=== PATIENT | male | born 1945 | race Caucasian/White ===

== ENCOUNTER → 2017-05-26 | Outpatient (CLI) | payer BC ==
[2017-05-26 17:35] LABS: BASO % 0.2 %; BASO ABS # 0.02 K/uL (0-0.2); COMPLETE YES; EOS % 1.7 %; HEMATOCRIT 42.6 % (42-52); IG% 0.2 %; LYMPH % 25.5 %; LYMPH ABS # 2.07 K/uL (1.2-3.4); MEAN CELL VOLUME 87.7 fL (80-100); MEAN CORPUSCULAR HEMOGLOBIN 28.8 pg (25-34); MEAN CORPUSCULAR HGB CONC 32.9 g/dl (32-36); MEAN PLATELET VOLUME 9.8 fL (7.4-10.4); MONO % 8.5 %; NEUT % 63.9 %; PLATELET COUNT 215 K/uL (130-400); RED BLOOD COUNT 4.86 M/uL (4.7-6.1); WHITE BLOOD COUNT 8.11 K/uL (4.8-10.8)
[2017-05-26 18:03] LABS: ALT/SGPT 48 U/L (12-78); BLOOD UREA NITROGEN 15 mg/dl (7-18); BUN/CREATININE RATIO 23.5 (10-20); CALCIUM 9.3 mg/dl (8.5-10.1); CARBON DIOXIDE 23 mmol/L (21-32); CHLORIDE 105 mmol/L (98-107); CHOLESTEROL 223 mg/dl (0-200); CREATININE 0.62 mg/dl (0.60-1.40); GLUCOSE 125 mg/dl (70-99); POTASSIUM 4.1 mmol/L (3.5-5.1); SODIUM 137 mmol/L (136-145)
[2017-05-26 18:14] LABS: ALB/GLOB RATIO 1.4 (0.9-2); ALKALINE PHOSPHATASE 54 U/L (45-117); AST/SGOT 31 U/L (15-37); CHOLESTEROL/HDL RATIO 6.8; HDL CHOLESTEROL 33 mg/dl; LDL CHOLESTEROL CALCULATED 154 mg/dl; TRIGLYCERIDES 178 mg/dl (0-150); VERY LOW DENSITY LIPOPROT CALC 36 mg/dl
[2017-05-27 07:26] LABS: ESTIMATED AVERAGE GLUCOSE 240 mg/dl; HA1C FLAG Normal (Normal)
== END | disposition home or self-care (01) ==
LOC: C.LAB1850 16:50
PROVIDERS: ATTEND Internal Medicine
DX: I10 Essential (primary) hypertension (principal); E78.5 Hyperlipidemia, unspecified; R80.9 Proteinuria, unspecified; E11.21 Type 2 diabetes mellitus with diabetic nephropathy; E04.9 Nontoxic goiter, unspecified; E03.9 Hypothyroidism, unspecified; Z11.59 Encounter for screening for other viral diseases

== ENCOUNTER → 2017-10-30 | Outpatient (CLI) | payer BC ==
[2017-10-30 17:50] LABS: BASO % 0.3 %; BASO ABS # 0.02 K/uL (0-0.2); EOS % 1.5 %; EOS ABS # 0.11 K/uL (0-0.5); HEMATOCRIT 40.4 % (42-52); HEMOGLOBIN 13.6 g/dL (14.0-18.0); IG# 0.01 K/uL (0.00-0.02); LYMPH % 29.3 %; LYMPH ABS # 2.22 K/uL (1.2-3.4); MEAN CELL VOLUME 85.4 fL (80-100); MEAN CORPUSCULAR HEMOGLOBIN 28.8 pg (25-34); MEAN CORPUSCULAR HGB CONC 33.7 g/dl (32-36); MEAN PLATELET VOLUME 9.5 fL (7.4-10.4); MONO % 11.2 %; MONO ABS # 0.85 K/uL (0.11-0.59); NEUT % 57.6 %; NEUT ABS # 4.37 K/uL (1.4-6.5); PLATELET COUNT 204 K/uL (130-400); RED CELL DISTRIBUTION WIDTH CV 13.1 % (11.5-14.5); RED CELL DISTRIBUTION WIDTH SD 41.1 fL (36.4-46.3); WHITE BLOOD COUNT 7.58 K/uL (4.8-10.8)
[2017-10-30 18:25] LABS: ALBUMIN 4.2 gm/dl (3.4-5.0); BLOOD UREA NITROGEN 18 mg/dl (7-18); CALCIUM 9.1 mg/dl (8.5-10.1); CARBON DIOXIDE 26 mmol/L (21-32); GLUCOSE 115 mg/dl (70-99); POTASSIUM 3.7 mmol/L (3.5-5.1); SODIUM 136 mmol/L (136-145)
[2017-10-30 18:34] LABS: CREATININE 0.56 mg/dl (0.60-1.40)
[2017-10-30 18:39] LABS: ALKALINE PHOSPHATASE 47 U/L (45-117); ALT/SGPT 43 U/L (12-78); AST/SGOT 23 U/L (15-37); CHOLESTEROL 177 mg/dl (0-200); LDL CHOLESTEROL CALCULATED 115 mg/dl; TOTAL PROTEIN 7.5 gm/dl (6.4-8.2)
[2017-10-31 06:27] LABS: HEMOGLOBIN A1C 8.4 % (4.5-5.6)
== END | disposition home or self-care (01) ==
LOC: C.LAB1850 17:14
PROVIDERS: ATTEND Internal Medicine
DX: I10 Essential (primary) hypertension (principal); E11.9 Type 2 diabetes mellitus without complications; E78.5 Hyperlipidemia, unspecified; R80.9 Proteinuria, unspecified; E04.9 Nontoxic goiter, unspecified; E03.9 Hypothyroidism, unspecified